=== PATIENT | female | born 1985 | race Caucasian/White ===

== ENCOUNTER 2016-10-24 09:21 | Inpatient (IN) | payer BC ==
[2016-10-24] VITALS (10 sets, daily range): BP systolic 118–147; BP diastolic 62–80; PULSE 62–80; TEMP 97.7–98
[~2016-10-24] VITALS: Ht 167.6 cm; Wt 90.9 kg
[2016-10-24] MEDS ORDERED: WELLBUTRIN XL300 M1 PO (09:29)
[2016-10-24] MEDS ORDERED: ALDOMET500 MG PO (09:30)
[2016-10-24] MEDS ORDERED: CENTRUM SILVER1 TAB PO (09:31)
[2016-10-24] MEDS ORDERED: TYLENOL 500MG500 MG PO (09:31)
[2016-10-24] MEDS ORDERED: LOTREL 5/10MG C1 CAP PO (09:32)
[2016-10-24 10:07] LABS: BASO % 0.3 % (0.0-2.0); EOS % 0.4 % (0-4.0); GRAN # 5.5 (1.4-6.5); GRAN % 75.3 % (42.2-75.2); LYMPH # 1.4 (1.2-3.4); LYMPH % 18.6 % (20.0-51.0); MEAN CELL VOLUME 93 fl (80.0-100.0); MEAN CORPUSCULAR HEMOGLOBIN 32 pg (27.0-31.0); MEAN CORPUSCULAR HGB CONC 35 g/dl (33.0-37.0); MEAN PLATELET VOLUME 9.4 fl (7.4-10.4); MONO # 0.4 (0.1-0.6); MONO % 4.8 % (1.7-9.3); PLATELET COUNT 194 K/mm3 (130-400); RED BLOOD COUNT 3.71 M/mm3 (4.10-5.30); WHITE BLOOD COUNT 7.2 K/mm3 (4.8-10.8)
[2016-10-24 10:10] LABS: HEMATOCRIT 34.5 % (37.0-47.0)
[2016-10-24 10:16] LABS: PH 6 (5-8); URINE APPEARANCE Hazy; URINE BACTERIA Rare /hpf; URINE BILIRUBIN Negative (NEGATIVE); URINE BLOOD Negative (NEGATIVE); URINE COLOR Yellow; URINE GLUCOSE Negative (NEGATIVE); URINE KETONE Negative (NEGATIVE); URINE RBC 0-2 /hpf; URINE UROBILINOGEN Negative (NEGATIVE); URINE WBC 0-2 /hpf
[2016-10-24 10:21] LABS: ADJUSTED CALCIUM 9.1 mg/dL (8.4-10.2); ALANINE AMINOTRANSFERASE 45 U/L (9-52); ALBUMIN 3.7 gm/dL (3.5-5.0); ALKALINE PHOSPHATASE 50 U/L (50-136); ANION GAP 7 mmol/L (7-16); BILIRUBIN,TOTAL 0.7 mg/dL (0.0-1.0); BLOOD UREA NITROGEN 10 mg/dL (7-17); CALCIUM 8.9 mg/dL (8.4-10.2); CARBON DIOXIDE 25 mmol/L (22-30); CHLORIDE 101 mmol/L (98-107); GLUCOSE 84 mg/dL (74-106); SODIUM 133 mmol/L (137-145); TOTAL PROTEIN 6.8 gm/dL (6.4-8.2)
[2016-10-24 10:22] LABS: C-REACTIVE PROTEIN < 0.5 mg/dL (0.0-0.9)
[2016-10-25] VITALS (7 sets, daily range): BP systolic 116–154; BP diastolic 67–88; PULSE 63–78; TEMP 97.1–98.2
[2016-10-25 11:28] LABS: ADJUSTED CALCIUM 9.2 mg/dL (8.4-10.2); ALBUMIN 3.3 gm/dL (3.5-5.0); BILIRUBIN,TOTAL 0.6 mg/dL (0.0-1.0); CALCIUM 8.6 mg/dL (8.4-10.2); CREATININE, serum 0.64 mg/dL (0.52-1.25); POTASSIUM 4.6 mmol/L (3.4-5.0); TOTAL PROTEIN 6.1 gm/dL (6.4-8.2)
[2016-10-26 03:30] VITALS: BP 144/80; PULSE 62; TEMP 98.1
[2016-10-26 07:00] VITALS: BP 152/73; PULSE 65; TEMP 97.4
[2016-10-26 07:55] LABS: BASO % 0.3 % (0.0-2.0); EOS # 0.1 (0.0-0.7); EOS % 0.8 % (0-4.0); GRAN % 77.5 % (42.2-75.2); LYMPH # 1.2 (1.2-3.4); LYMPH % 15.6 % (20.0-51.0); MEAN CELL VOLUME 92 fl (80.0-100.0); MEAN CORPUSCULAR HGB CONC 36 g/dl (33.0-37.0); MEAN PLATELET VOLUME 9.3 fl (7.4-10.4); MONO # 0.4 (0.1-0.6); MONO % 5.5 % (1.7-9.3); PLATELET COUNT 176 K/mm3 (130-400); RED BLOOD COUNT 3.31 M/mm3 (4.10-5.30); WHITE BLOOD COUNT 7.7 K/mm3 (4.8-10.8)
[2016-10-26 07:56] LABS: HEMATOCRIT 30.4 % (37.0-47.0); HEMOGLOBIN 10.8 g/dl (12.5-16.0); MEAN CORPUSCULAR HEMOGLOBIN 33 pg (27.0-31.0)
[2016-10-26 08:07] LABS: ADJUSTED CALCIUM 9.1 mg/dL (8.4-10.2); ALBUMIN 3.3 gm/dL (3.5-5.0); BILIRUBIN,TOTAL 0.6 mg/dL (0.0-1.0); CALCIUM 8.5 mg/dL (8.4-10.2); CREATININE, serum 0.52 mg/dL (0.52-1.25); POTASSIUM 4.1 mmol/L (3.4-5.0); TOTAL PROTEIN 6.2 gm/dL (6.4-8.2)
== END 2016-10-26 11:45 | disposition home or self-care (01) | DRG 781 ==
LOC: COL.ER 09:21 → SURG 14:00 → OB 17:05
PROVIDERS: Emergency Medicine; Surgery
PROC: 0FT44ZZ Resection of Gallbladder, Percutaneous Endoscopic Approach (ICD-10-PCS; principal; 2016-10-25)
DX: O99.612 Diseases of the digestive system complicating pregnancy, second trimester (principal); K80.10 Calculus of gallbladder with chronic cholecystitis without obstruction; O99.842 Bariatric surgery status complicating pregnancy, second trimester; O34.211 Maternal care for low transverse scar from previous cesarean delivery; N85.8 Other specified noninflammatory disorders of uterus; Z3A.22 22 weeks gestation of pregnancy
CPT/HCPCS: OP; J1170; J2270; J2405; J2543; J2550; J2704; J2710; J3010; J7030; J7042; J7050; J7120

== ENCOUNTER 2016-11-23 19:25 | Emergency (ER) | payer BC ==
[~2016-11-23] VITALS: Ht 167.6 cm; Wt 90.9 kg
[~2016-11-23 19:25] MED LIST: ALDOMET500 MG PO; CENTRUM SILVER1 TAB PO; LOTREL 5/10MG C1 CAP PO; TYLENOL 500MG500 MG PO; WELLBUTRIN XL300 M1 PO
[2016-11-23 19:37] VITALS: TEMP 97.5
[2016-11-23] MEDS ORDERED: TYLENOL W/COD1 UDTAB PO (19:45)
[2016-11-23] MEDS ORDERED: PRILOSEC 20MG20 MG PO (19:46)
[2016-11-23 20:33] LABS: BASO % 0.5 % (0.0-2.0); EOS % 0.5 % (0-4.0); GRAN # 4.8 (1.4-6.5); GRAN % 75.3 % (42.2-75.2); LYMPH # 1.1 (1.2-3.4); LYMPH % 17.4 % (20.0-51.0); MEAN CELL VOLUME 92 fl (80.0-100.0); MEAN CORPUSCULAR HGB CONC 36 g/dl (33.0-37.0); MEAN PLATELET VOLUME 9.2 fl (7.4-10.4); MONO # 0.4 (0.1-0.6); PLATELET COUNT 202 K/mm3 (130-400); RED BLOOD COUNT 3.58 M/mm3 (4.10-5.30); REDCELL DISTRIBUTION WIDTH-CV 13.4 % (11.5-14.5); WHITE BLOOD COUNT 6.4 K/mm3 (4.8-10.8)
[2016-11-23 20:39] LABS: HEMOGLOBIN 11.9 g/dl (12.5-16.0); MEAN CORPUSCULAR HEMOGLOBIN 33 pg (27.0-31.0)
[2016-11-23 20:45] LABS: ADJUSTED CALCIUM 9.2 mg/dL (8.4-10.2); ALBUMIN 3.6 gm/dL (3.5-5.0); BILIRUBIN,TOTAL 0.7 mg/dL (0.0-1.0); CALCIUM 8.9 mg/dL (8.4-10.2); CREATININE, serum 0.5 mg/dL (0.52-1.25); POTASSIUM 4.2 mmol/L (3.4-5.0); TOTAL PROTEIN 6.6 gm/dL (6.4-8.2)
[2016-11-23 20:54] LABS: PH 5 (5-8); URINE APPEARANCE Hazy; URINE BACTERIA None Seen /hpf; URINE BILIRUBIN Negative (NEGATIVE); URINE BLOOD Negative (NEGATIVE); URINE COLOR Amber; URINE GLUCOSE Negative (NEGATIVE); URINE KETONE Trace (NEGATIVE); URINE WBC 0-2 /hpf
[2016-11-23 22:15] VITALS: BP 130/82; PULSE 72
== END 2016-11-23 22:17 | disposition home or self-care (01) ==
LOC: COL.ER 19:25
PROVIDERS: Emergency Medicine
DX: O99.89 Other specified diseases and conditions complicating pregnancy, childbirth and the puerperium (principal); M54.89 Other dorsalgia; O16.2 Unspecified maternal hypertension, second trimester; R10.84 Generalized abdominal pain; O99.612 Diseases of the digestive system complicating pregnancy, second trimester; K92.1 Melena; Z3A.27 27 weeks gestation of pregnancy
CPT/HCPCS: J2765; J7030

== ENCOUNTER → 2016-11-24 | Outpatient (CLI) | payer BC ==
[~2016-11-24] MED LIST changes: +AMOXICILLIN 8751 TAB PO; +CARAFATE S1 GM/10 ML PO; +CYANOCOBAL1000 MCG/M IM; +NATURE'S BLE1000 MCG PO; +PERCOCET 325 MG1 TA2 PO; +PERCOCET 325 MG1 TA3 PO; +PRILOSEC 20MG20 MG PO; +TYLENOL W/COD1 UDTAB PO
== END ==
LOC: COL.RAD 14:31
DX: O26.892 Other specified pregnancy related conditions, second trimester (principal); R10.84 Generalized abdominal pain; D27.1 Benign neoplasm of left ovary; Z3A.26 26 weeks gestation of pregnancy
CPT/HCPCS: Q9967

== ENCOUNTER 2016-11-26 10:28 | Observation (INO) | payer BC ==
[~2016-11-26] VITALS: Ht 167.6 cm; Wt 88.6 kg
[~2016-11-26 10:28] MED LIST changes: -AMOXICILLIN 8751 TAB PO; -CARAFATE S1 GM/10 ML PO; -CYANOCOBAL1000 MCG/M IM; -NATURE'S BLE1000 MCG PO; -PERCOCET 325 MG1 TA2 PO; -PERCOCET 325 MG1 TA3 PO
[2016-11-26 11:13] LABS: ADJUSTED CALCIUM 9.2 mg/dL (8.4-10.2); ALBUMIN 3.7 gm/dL (3.5-5.0); BILIRUBIN,TOTAL 0.7 mg/dL (0.0-1.0); CREATININE, serum 0.53 mg/dL (0.52-1.25); POTASSIUM 3.9 mmol/L (3.4-5.0); TOTAL PROTEIN 6.8 gm/dL (6.4-8.2)
[2016-11-26 11:23] LABS: BASO % 0.5 % (0.0-2.0); EOS % 0.5 % (0-4.0); GRAN # 4.8 (1.4-6.5); LYMPH # 1.3 (1.2-3.4); LYMPH % 19.6 % (20.0-51.0); MEAN CELL VOLUME 94 fl (80.0-100.0); MEAN CORPUSCULAR HGB CONC 35 g/dl (33.0-37.0); MEAN PLATELET VOLUME 9.3 fl (7.4-10.4); MONO # 0.3 (0.1-0.6); MONO % 4.9 % (1.7-9.3); PLATELET COUNT 201 K/mm3 (130-400); REDCELL DISTRIBUTION WIDTH-CV 13.2 % (11.5-14.5); WHITE BLOOD COUNT 6.5 K/mm3 (4.8-10.8)
[2016-11-26 11:26] LABS: HEMATOCRIT 33.7 % (37.0-47.0); HEMOGLOBIN 11.8 g/dl (12.5-16.0); MEAN CORPUSCULAR HEMOGLOBIN 33 pg (27.0-31.0)
[2016-11-26] MEDS ORDERED: CYANOCOBAL1000 MCG/M IM (11:53)
[2016-11-26 12:01] VITALS: BP 110/72; PULSE 82; TEMP 98.1
[2016-11-26 15:54] VITALS: BP 123/68; PULSE 71; TEMP 98.3
[2016-11-26 21:30] VITALS: BP 129/79; PULSE 65; TEMP 97.9
[2016-11-27 02:30] VITALS: BP 120/75; PULSE 71; TEMP 97.9
[2016-11-27 07:59] VITALS: BP 127/77; PULSE 71; TEMP 98.1
[2016-11-27 11:20] VITALS: BP 140/88; PULSE 76; TEMP 97.5
[2016-11-27] MEDS ORDERED: PERCOCET 325 MG1 TA2 PO (14:11)
[2016-11-27] MEDS ORDERED: CARAFATE S1 GM/10 ML PO (14:12)
== END 2016-11-27 15:55 | disposition home or self-care (01) ==
LOC: COL.ER 10:28 → OB 11:08
PROVIDERS: Obstetrics & Gynecology
DX: O99.89 Other specified diseases and conditions complicating pregnancy, childbirth and the puerperium (principal); R10.9 Unspecified abdominal pain; O21.1 Hyperemesis gravidarum with metabolic disturbance; O16.2 Unspecified maternal hypertension, second trimester; Z3A.26 26 weeks gestation of pregnancy; O99.840 Bariatric surgery status complicating pregnancy, unspecified trimester; O09.213 Supervision of pregnancy with history of pre-term labor, third trimester; Z3A.29 29 weeks gestation of pregnancy; Z87.891 Personal history of nicotine dependence
CPT/HCPCS: G0378; J7120

== ENCOUNTER 2017-01-29 05:49 | Inpatient (IN) | payer BC ==
[~2017-01-29] VITALS: Ht 167.6 cm; Wt 96.8 kg
[2017-01-29] VITALS (19 sets, daily range): BP systolic 104–139; BP diastolic 69–89; PULSE 66–99; TEMP 97.4–98.1
[~2017-01-29 05:49] MED LIST changes: +CARAFATE S1 GM/10 ML PO; +CYANOCOBAL1000 MCG/M IM; +PERCOCET 325 MG1 TA2 PO
[2017-01-29] MEDS ORDERED: NATURE'S BLE1000 MCG PO (06:22)
[2017-01-29] MEDS ORDERED: CYANOCOBAL1000 MCG/M IM (06:24)
[2017-01-29 06:37] LABS: BASO % 0.3 % (0.0-2.0); EOS % 0.6 % (0-4.0); GRAN # 4.3 (1.4-6.5); GRAN % 62.7 % (42.2-75.2); LYMPH % 28.8 % (20.0-51.0); MEAN CELL VOLUME 94 fl (80.0-100.0); MEAN CORPUSCULAR HGB CONC 35 g/dl (33.0-37.0); MEAN PLATELET VOLUME 9.9 fl (7.4-10.4); MONO # 0.5 (0.1-0.6); PLATELET COUNT 181 K/mm3 (130-400); RED BLOOD COUNT 3.51 M/mm3 (4.10-5.30); REDCELL DISTRIBUTION WIDTH-CV 12.8 % (11.5-14.5); WHITE BLOOD COUNT 6.9 K/mm3 (4.8-10.8)
[2017-01-29 06:41] LABS: HEMATOCRIT 33.1 % (37.0-47.0); HEMOGLOBIN 11.6 g/dl (12.5-16.0); MEAN CORPUSCULAR HEMOGLOBIN 33 pg (27.0-31.0)
[2017-01-30 01:45] VITALS: BP 135/84; PULSE 72; TEMP 98.4
[2017-01-30 07:30] VITALS: BP 138/81; PULSE 61; TEMP 98.1
[2017-01-30 07:49] LABS: BASO % 0.3 % (0.0-2.0); EOS # 0.1 (0.0-0.7); EOS % 0.6 % (0-4.0); GRAN # 6.5 (1.4-6.5); GRAN % 71.4 % (42.2-75.2); LYMPH # 1.9 (1.2-3.4); LYMPH % 20.9 % (20.0-51.0); MEAN CELL VOLUME 96 fl (80.0-100.0); MEAN CORPUSCULAR HGB CONC 34 g/dl (33.0-37.0); MEAN PLATELET VOLUME 9.9 fl (7.4-10.4); MONO # 0.6 (0.1-0.6); MONO % 6.5 % (1.7-9.3); PLATELET COUNT 151 K/mm3 (130-400); RED BLOOD COUNT 2.92 M/mm3 (4.10-5.30); WHITE BLOOD COUNT 9.1 K/mm3 (4.8-10.8)
[2017-01-30 08:12] LABS: HEMATOCRIT 28.1 % (37.0-47.0); HEMOGLOBIN 9.6 g/dl (12.5-16.0); MEAN CORPUSCULAR HEMOGLOBIN 33 pg (27.0-31.0)
[2017-01-30 16:45] VITALS: BP 140/89; PULSE 76; TEMP 98.4
[2017-01-30 19:47] VITALS: BP 137/83; PULSE 73; TEMP 98
[2017-01-31 09:16] VITALS: BP 149/74; PULSE 67; TEMP 97.8
[2017-01-31 16:15] VITALS: BP 151/89; PULSE 71; TEMP 97.8
[2017-01-31 20:00] VITALS: BP 150/93; PULSE 65; TEMP 98.2
[2017-02-01 04:45] VITALS: BP 146/95; PULSE 67
[2017-02-01 08:26] VITALS: BP 151/91; PULSE 64; TEMP 97.5
[2017-02-01] MEDS ORDERED: PERCOCET 325 MG1 TA3 PO (11:17)
[2017-02-01 13:16] VITALS: BP 140/78
[2017-02-01 16:19] VITALS: BP 150/54; PULSE 75; TEMP 97.3
[2017-02-01 20:05] VITALS: BP 138/77; PULSE 65; TEMP 97.7
[2017-02-02 07:26] VITALS: BP 144/83; PULSE 68; TEMP 98.1
[2017-02-02] MEDS ORDERED: AMOXICILLIN 8751 TAB PO (08:48)
== END 2017-02-02 11:00 | disposition home or self-care (01) | DRG 765 ==
LOC: OB 05:49
PROVIDERS: Obstetrics & Gynecology
PROC: 10D00Z1 Extraction of Products of Conception, Low, Open Approach (ICD-10-PCS; principal; 2017-01-29)
PROC: 0UB10ZZ Excision of Left Ovary, Open Approach (ICD-10-PCS; 2017-01-29)
DX: O99.844 Bariatric surgery status complicating childbirth (principal); O13.3 Gestational [pregnancy-induced] hypertension without significant proteinuria, third trimester; O34.211 Maternal care for low transverse scar from previous cesarean delivery; O24.410 Gestational diabetes mellitus in pregnancy, diet controlled; N85.8 Other specified noninflammatory disorders of uterus; O34.83 Maternal care for other abnormalities of pelvic organs, third trimester; D27.1 Benign neoplasm of left ovary; Z87.51 Personal history of pre-term labor; Z3A.36 36 weeks gestation of pregnancy; Z37.0 Single live birth
CPT/HCPCS: J0690; J1200; J1885; J2175; J2270; J2370; J2405; J2590; J2765; J7120

== ENCOUNTER → 2017-02-08 | Outpatient (CLI) | payer BC ==
[~2017-02-08] MED LIST changes: +AMOXICILLIN 8751 TAB PO; +NATURE'S BLE1000 MCG PO; +PERCOCET 325 MG1 TA3 PO
== END ==
LOC: OLC 13:45
DX: Z39.1 Encounter for care and examination of lactating mother (principal); Z71.89 Other specified counseling

== ENCOUNTER 2017-07-19 09:05 | Inpatient (IN) | payer BC ==
[2017-07-19] VITALS (12 sets, daily range): BP systolic 89–139; BP diastolic 56–91; PULSE 68–91; TEMP 97.2–98.4
[~2017-07-19] VITALS: Ht 167.6 cm; Wt 82.5 kg
[~2017-07-19 09:05] MED LIST changes: +CIPRO 500MG TA500 MG PO; +CYANOCOBAL1000 MCG/1 IM; +NUVARING VAG RING VG; +VITAMIN D31000 I1 PO; +WELLBUTRIN XL150 MG PO; -WELLBUTRIN XL300 M1 PO
[2017-07-19] MEDS ORDERED: BIOTIN5000 MCG PO (09:32)
[2017-07-19] MEDS ORDERED: LEVSIN0.125 M1 PO (09:33)
[2017-07-19] MEDS ORDERED: LOTREL 5/10MG C1 CAP PO (09:35)
[2017-07-19] MEDS ORDERED: PERCOCET 325 MG1 TA3 PO (14:32)
[2017-07-19] MEDS ORDERED: NEURONTIN100 MG/CAP PO (14:32)
[2017-07-19] MEDS ORDERED: COLACE 100100 MG/CAP PO (14:33)
[2017-07-20 05:41] VITALS: BP 114/67; PULSE 83; TEMP 98.3
[2017-07-20 08:57] LABS: HEMOGLOBIN 12.3 g/dl (12.5-16.0); MEAN CELL VOLUME 94 fl (80.0-100.0); MEAN CORPUSCULAR HEMOGLOBIN 32 pg (27.0-31.0); MEAN CORPUSCULAR HGB CONC 34 g/dl (33.0-37.0); MEAN PLATELET VOLUME 9.7 fl (7.4-10.4); PLATELET COUNT 211 K/mm3 (130-400); WHITE BLOOD COUNT 11.3 K/mm3 (4.8-10.8)
[2017-07-20 09:04] LABS: ADD PATHOLOGY DIFF REVIEW NO; HEMATOCRIT 36.6 % (37.0-47.0)
[2017-07-20 09:06] VITALS: BP 109/69; PULSE 83; TEMP 98.2
[2017-07-20 09:09] LABS: ADJUSTED CALCIUM 9.3 mg/dL (8.4-10.2); ALBUMIN 3.1 gm/dL (3.5-5.0); BILIRUBIN,TOTAL 0.6 mg/dL (0.0-1.0); CALCIUM 8.6 mg/dL (8.4-10.2); CREATININE, serum 1.37 mg/dL (0.52-1.25); POTASSIUM 4.7 mmol/L (3.4-5.0); TOTAL PROTEIN 5.6 gm/dL (6.4-8.2)
[2017-07-20 09:26] LABS: BAND 58 % (0-10); LYMPHOCYTE 8 % (20.0-51.0); NEUTROPHILS 33 % (42.0-75.2); PLATELET ESTIMATE NORMAL (NORMAL); TOTAL CELLS COUNTED 100
[2017-07-20 14:00] LABS: CALCIUM 8.4 mg/dL (8.4-10.2); CREATININE, serum 1.52 mg/dL (0.52-1.25); POTASSIUM 4.5 mmol/L (3.4-5.0)
[2017-07-20 14:02] VITALS: BP 120/75; PULSE 98; TEMP 97
[2017-07-20 18:09] VITALS: BP 128/89; PULSE 85; TEMP 97.6
[2017-07-20 21:27] LABS: COLLECTION METHOD CLEAN CATCH
[2017-07-20 21:46] LABS: HYALINE CAST >12 /lpf; MUCOUS Present /lpf; PH 5 (5-8); URINE APPEARANCE Cloudy; URINE BACTERIA Rare /hpf; URINE BILIRUBIN Negative (NEGATIVE); URINE BLOOD Negative (NEGATIVE); URINE CALCIUM OXALATE CRYSTAL Present /hpf; URINE COLOR Yellow; URINE GLUCOSE Negative (NEGATIVE); URINE KETONE Negative (NEGATIVE); URINE LEUKOCYTE ESTERASE Negative (NEGATIVE); URINE PROTEIN(semi-quant) 1+ (NEGATIVE); URINE UROBILINOGEN Negative (NEGATIVE)
[2017-07-20 22:28] VITALS: BP 125/72; PULSE 94; TEMP 97.5
[2017-07-21 05:29] VITALS: BP 120/69; PULSE 90; TEMP 97.9
[2017-07-21 07:32] LABS: MEAN CELL VOLUME 93 fl (80.0-100.0); MEAN CORPUSCULAR HGB CONC 34 g/dl (33.0-37.0); MEAN PLATELET VOLUME 9.7 fl (7.4-10.4); PLATELET COUNT 168 K/mm3 (130-400); RED BLOOD COUNT 3.45 M/mm3 (4.10-5.30); WHITE BLOOD COUNT 6.9 K/mm3 (4.8-10.8)
[2017-07-21 07:33] LABS: ADD PATHOLOGY DIFF REVIEW NO; HEMATOCRIT 32.2 % (37.0-47.0); HEMOGLOBIN 10.8 g/dl (12.5-16.0); MEAN CORPUSCULAR HEMOGLOBIN 31 pg (27.0-31.0)
[2017-07-21 07:39] LABS: ALBUMIN 3.1 gm/dL (3.5-5.0); CALCIUM 8.4 mg/dL (8.4-10.2); CREATININE, serum 1.01 mg/dL (0.52-1.25); PHOSPHOROUS 3.7 mg/dL (2.5-4.5); POTASSIUM 4.1 mmol/L (3.4-5.0)
[2017-07-21 07:45] VITALS: BP 114/75; PULSE 94; TEMP 98.5
[2017-07-21 09:28] LABS: BAND 45 % (0-10); EOSINOPHIL 1 % (0-4); LYMPHOCYTE 7 % (20.0-51.0); NEUTROPHILS 46 % (42.0-75.2); PLATELET ESTIMATE NORMAL (NORMAL); TOTAL CELLS COUNTED 100
[2017-07-21 10:30] VITALS: BP 108/74; PULSE 84; TEMP 98.2
[2017-07-21 13:00] VITALS: BP 115/71; PULSE 93; TEMP 98.1
[2017-07-21 16:53] VITALS: BP 129/84; PULSE 94; TEMP 98.1
[2017-07-21 21:26] VITALS: BP 120/78; PULSE 87; TEMP 97.8
[2017-07-22 01:15] VITALS: BP 112/71; PULSE 83; TEMP 98
[2017-07-22 06:10] VITALS: BP 122/86; PULSE 84; TEMP 99
[2017-07-22 07:39] LABS: MEAN CELL VOLUME 94 fl (80.0-100.0); MEAN CORPUSCULAR HGB CONC 34 g/dl (33.0-37.0); MEAN PLATELET VOLUME 9.7 fl (7.4-10.4); PLATELET COUNT 152 K/mm3 (130-400); RED BLOOD COUNT 3.11 M/mm3 (4.10-5.30); WHITE BLOOD COUNT 6.2 K/mm3 (4.8-10.8)
[2017-07-22 07:46] LABS: HEMATOCRIT 29.2 % (37.0-47.0); HEMOGLOBIN 9.9 g/dl (12.5-16.0); MEAN CORPUSCULAR HEMOGLOBIN 32 pg (27.0-31.0)
[2017-07-22 07:59] LABS: CALCIUM 8.4 mg/dL (8.4-10.2); CREATININE, serum 0.73 mg/dL (0.52-1.25); POTASSIUM 4.3 mmol/L (3.4-5.0)
[2017-07-22 09:34] VITALS: BP 125/78; PULSE 80; TEMP 98.5
[2017-07-22 17:19] VITALS: BP 131/82; PULSE 83; TEMP 98.1
[2017-07-22 22:02] VITALS: BP 149/88; PULSE 90; TEMP 98
[2017-07-23 02:25] VITALS: BP 166/88; PULSE 99; TEMP 98.4
[2017-07-23 05:13] VITALS: BP 141/82; PULSE 85; TEMP 98.6
[2017-07-23 06:07] LABS: BASO % 0.3 % (0.0-2.0); EOS # 0.1 (0.0-0.7); EOS % 2.4 % (0-4.0); GRAN # 4.4 (1.4-6.5); GRAN % 74.8 % (42.2-75.2); LYMPH # 0.8 (1.2-3.4); LYMPH % 13.2 % (20.0-51.0); MEAN CELL VOLUME 92 fl (80.0-100.0); MEAN CORPUSCULAR HGB CONC 34 g/dl (33.0-37.0); MEAN PLATELET VOLUME 9.3 fl (7.4-10.4); MONO # 0.5 (0.1-0.6); PLATELET COUNT 180 K/mm3 (130-400); WHITE BLOOD COUNT 5.9 K/mm3 (4.8-10.8)
[2017-07-23 06:17] LABS: HEMATOCRIT 30.5 % (37.0-47.0); HEMOGLOBIN 10.5 g/dl (12.5-16.0); MEAN CORPUSCULAR HEMOGLOBIN 32 pg (27.0-31.0)
[2017-07-23 06:23] LABS: ALBUMIN 3.1 gm/dL (3.5-5.0); CALCIUM 8.5 mg/dL (8.4-10.2); CREATININE, serum 0.68 mg/dL (0.52-1.25); PHOSPHOROUS 3.3 mg/dL (2.5-4.5); POTASSIUM 4.2 mmol/L (3.4-5.0)
[2017-07-23 09:40] VITALS: BP 130/85; PULSE 80; TEMP 97.9
[2017-07-23 13:32] VITALS: BP 148/90; PULSE 82; TEMP 98.2
[2017-07-23 17:48] VITALS: BP 139/87; PULSE 81; TEMP 98
[2017-07-23 21:41] VITALS: BP 148/99; PULSE 79; TEMP 97.9
[2017-07-24 01:51] VITALS: BP 139/87; PULSE 84; TEMP 98.4
[2017-07-24 05:36] VITALS: BP 144/91; PULSE 81; TEMP 98.3
[2017-07-24 06:44] LABS: BASO % 0.6 % (0.0-2.0); EOS # 0.2 (0.0-0.7); GRAN # 3.4 (1.4-6.5); GRAN % 64.8 % (42.2-75.2); LYMPH # 1.1 (1.2-3.4); LYMPH % 19.9 % (20.0-51.0); MEAN CELL VOLUME 94 fl (80.0-100.0); MEAN CORPUSCULAR HGB CONC 33 g/dl (33.0-37.0); MEAN PLATELET VOLUME 9.1 fl (7.4-10.4); MONO # 0.5 (0.1-0.6); MONO % 9.8 % (1.7-9.3); PLATELET COUNT 211 K/mm3 (130-400); RED BLOOD COUNT 3.45 M/mm3 (4.10-5.30); WHITE BLOOD COUNT 5.3 K/mm3 (4.8-10.8)
[2017-07-24 06:45] LABS: HEMATOCRIT 32.3 % (37.0-47.0); HEMOGLOBIN 10.8 g/dl (12.5-16.0); MEAN CORPUSCULAR HEMOGLOBIN 31 pg (27.0-31.0)
[2017-07-24 06:50] LABS: CALCIUM 8.9 mg/dL (8.4-10.2); CREATININE, serum 0.59 mg/dL (0.52-1.25); POTASSIUM 4.3 mmol/L (3.4-5.0)
[2017-07-24 11:03] VITALS: BP 138/90; PULSE 87; TEMP 98.3
[2017-07-24 14:33] VITALS: BP 149/90; PULSE 86; TEMP 98
== END 2017-07-24 17:42 | disposition home or self-care (01) | DRG 330 ==
LOC: SDCO 09:05 → SURG 17:55 → SDCO 07-20 14:59 → SURG 07-20 15:00 → SDCO 07-22 14:30 → SURG 07-22 15:23
PROVIDERS: Surgery
PROC: 0DQB0ZZ Repair Ileum, Open Approach (ICD-10-PCS; 2017-07-19)
PROC: 0DNB4ZZ Release Ileum, Percutaneous Endoscopic Approach (ICD-10-PCS; 2017-07-19)
PROC: 0WQF4ZZ Repair Abdominal Wall, Percutaneous Endoscopic Approach (ICD-10-PCS; principal; 2017-07-19 12:00)
DX: K56.51 Intestinal adhesions [bands], with partial obstruction (principal); N99.71 Accidental puncture and laceration of a genitourinary system organ or structure during a genitourinary system procedure; E46 Unspecified protein-calorie malnutrition; E87.1 Hypo-osmolality and hyponatremia; I10 Essential (primary) hypertension; Z98.84 Bariatric surgery status
CPT/HCPCS: OP; A9284; C9113; G0378; J0330; J0694; J1100; J1170; J1650; J1885; J2370; J2405; J2704; J2710; J3010; J7120

== ENCOUNTER → 2017-08-03 | Outpatient (CLI) | payer BC ==
[~2017-08-03] MED LIST changes: +BIOTIN5000 MCG PO; +COLACE 100100 MG/CAP PO; +LEVSIN0.125 M1 PO; +NEURONTIN100 MG/CAP PO
== END ==
LOC: COL.RAD 10:02
DX: R10.9 Unspecified abdominal pain (principal)

== ENCOUNTER 2017-08-05 07:43 | Inpatient (IN) | payer BC ==
[~2017-08-05] VITALS: Ht 167.6 cm; Wt 81.6 kg
[2017-08-05] VITALS (13 sets, daily range): BP systolic 133–175; BP diastolic 73–107; PULSE 94–102; TEMP 98.5–98.9
[2017-08-05 08:24] LABS: COLLECTION METHOD CLEAN CATCH
[2017-08-05 08:32] LABS: BASO % 0.3 % (0.0-2.0); EOS % 0.2 % (0-4.0); GRAN # 12.5 (1.4-6.5); GRAN % 87.2 % (42.2-75.2); HEMOGLOBIN 12.2 g/dl (12.5-16.0); LYMPH # 0.9 (1.2-3.4); LYMPH % 6.1 % (20.0-51.0); MEAN CELL VOLUME 93 fl (80.0-100.0); MEAN CORPUSCULAR HEMOGLOBIN 31 pg (27.0-31.0); MEAN CORPUSCULAR HGB CONC 34 g/dl (33.0-37.0); MEAN PLATELET VOLUME 8.8 fl (7.4-10.4); MONO # 0.8 (0.1-0.6); MONO % 5.7 % (1.7-9.3); PLATELET COUNT 443 K/mm3 (130-400); WHITE BLOOD COUNT 14.4 K/mm3 (4.8-10.8)
[2017-08-05 08:33] LABS: MUCOUS Present /lpf; PH 5 (5-8); SQUAMOUS EPITHELIAL 0-2 /hpf; URINE APPEARANCE Clear; URINE BACTERIA Rare /hpf; URINE BILIRUBIN Negative (NEGATIVE); URINE BLOOD Negative (NEGATIVE); URINE COLOR Yellow; URINE GLUCOSE Negative (NEGATIVE); URINE KETONE 1+ (NEGATIVE); URINE LEUKOCYTE ESTERASE Negative (NEGATIVE); URINE PROTEIN(semi-quant) Negative (NEGATIVE); URINE UROBILINOGEN Negative (NEGATIVE); URINE WBC 0-2 /hpf
[2017-08-05 08:36] LABS: HEMATOCRIT 36.1 % (37.0-47.0)
[2017-08-05 08:38] LABS: ADJUSTED CALCIUM 9.2 mg/dL (8.4-10.2); ALBUMIN 3.8 gm/dL (3.5-5.0); BILIRUBIN,TOTAL 0.7 mg/dL (0.0-1.0); CREATININE, serum 0.67 mg/dL (0.52-1.25); POTASSIUM 4.4 mmol/L (3.4-5.0); TOTAL PROTEIN 6.7 gm/dL (6.4-8.2)
[2017-08-06 02:22] VITALS: BP 133/84; PULSE 76; TEMP 97.6
[2017-08-06 08:00] VITALS: BP 133/82; PULSE 78; TEMP 98.7
[2017-08-06 09:24] LABS: BASO % 0.2 % (0.0-2.0); EOS # 0.1 (0.0-0.7); EOS % 0.6 % (0-4.0); GRAN # 7.5 (1.4-6.5); GRAN % 79.1 % (42.2-75.2); LYMPH # 1.1 (1.2-3.4); MEAN CELL VOLUME 93 fl (80.0-100.0); MEAN CORPUSCULAR HGB CONC 34 g/dl (33.0-37.0); MEAN PLATELET VOLUME 9.2 fl (7.4-10.4); MONO # 0.7 (0.1-0.6); MONO % 7.6 % (1.7-9.3); PLATELET COUNT 374 K/mm3 (130-400); RED BLOOD COUNT 3.24 M/mm3 (4.10-5.30); WHITE BLOOD COUNT 9.5 K/mm3 (4.8-10.8)
[2017-08-06 09:33] LABS: HEMOGLOBIN 10.1 g/dl (12.5-16.0); MEAN CORPUSCULAR HEMOGLOBIN 31 pg (27.0-31.0)
[2017-08-06 09:34] LABS: HEMATOCRIT 30.1 % (37.0-47.0)
[2017-08-06 09:36] LABS: CALCIUM 8.6 mg/dL (8.4-10.2); CREATININE, serum 0.66 mg/dL (0.52-1.25); PHOSPHOROUS 4.2 mg/dL (2.5-4.5); POTASSIUM 4.5 mmol/L (3.4-5.0)
[2017-08-06 11:15] VITALS: BP 125/74; PULSE 90; TEMP 97.9
[2017-08-06 16:00] VITALS: BP 106/60; PULSE 81; TEMP 98.7
[2017-08-06 20:18] VITALS: BP 126/85; PULSE 90; TEMP 98.7
[2017-08-06 23:18] VITALS: BP 120/71; PULSE 72; TEMP 98.8
[2017-08-07 03:20] VITALS: BP 116/69; PULSE 71; TEMP 98.7
[2017-08-07 09:30] VITALS: BP 122/71; PULSE 81; TEMP 98.4
[2017-08-07 12:11] VITALS: BP 115/72; PULSE 80; TEMP 98.3
[2017-08-07 15:19] VITALS: BP 128/82; PULSE 85; TEMP 97
[2017-08-07 20:16] VITALS: BP 116/72; PULSE 90; TEMP 99
[2017-08-08 00:43] VITALS: BP 135/87; PULSE 85; TEMP 98.2
[2017-08-08 04:19] VITALS: BP 133/88; PULSE 83; TEMP 98.5
[2017-08-08 07:59] VITALS: BP 133/81; PULSE 80; TEMP 98
[2017-08-08 12:10] VITALS: BP 127/87; PULSE 80; TEMP 97.6
[2017-08-08 16:04] VITALS: BP 129/77; PULSE 87; TEMP 98.1
[2017-08-08 20:38] VITALS: BP 129/81; PULSE 83; TEMP 98.6
[2017-08-09 00:26] VITALS: BP 139/88; PULSE 84; TEMP 98
[2017-08-09 04:25] VITALS: BP 132/84; PULSE 86
[2017-08-09 07:34] VITALS: BP 141/86; PULSE 83; TEMP 98.6
[2017-08-09 11:42] VITALS: BP 138/83; PULSE 83; TEMP 98
[2017-08-09] MEDS ORDERED: PERCOCET 325 MG1 TA2 PO (12:37)
[2017-08-09] MEDS ORDERED: AMOXICILLIN 8751 TAB PO (12:41)
[2017-08-09 16:33] VITALS: BP 138/76; PULSE 88
== END 2017-08-09 18:00 | disposition home or self-care (01) | DRG 392 ==
LOC: COL.ER 07:43 → MEDICAL 11:19
PROVIDERS: Nurse Practitioner; Surgery
PROC: 0W9G30Z Drainage of Peritoneal Cavity with Drainage Device, Percutaneous Approach (ICD-10-PCS; principal; 2017-08-05)
DX: R10.31 Right lower quadrant pain (principal); L76.34 Postprocedural seroma of skin and subcutaneous tissue following other procedure; I10 Essential (primary) hypertension; Z98.84 Bariatric surgery status
CPT/HCPCS: A9284; J0744; J1170; J1885; J2250; J2405; J2550; J7030; J7050; J7120; Q9967